=== PATIENT | male | born 1960 | race Caucasian/White ===

== ENCOUNTER 2024-06-27 13:15 | Outpatient (CLI) | payer OTHER | END 2024-06-27 13:16 | disposition home or self-care (01) | LOC: BICRAD 13:15 | PROVIDERS: ATTEND Podiatrist | DX: L89.90 Pressure ulcer of unspecified site, unspecified stage (principal) ==

== ENCOUNTER 2024-08-08 20:16 | Inpatient (IN) | payer BC, SELFPAY ==
[2024-08-08] MEDS ORDERED: Ipratropium/Albuterol 3 ML NEB NEB PRN (22:05)
[2024-08-08] MEDS ORDERED: Morphine 2 MG/ML VIAL SLOW IVP PRN (22:05)
[2024-08-08] MEDS ORDERED: Ondansetron PF 4 MG/2 ML Vial IVP PRN (22:05)
[2024-08-08] MEDS ORDERED: traMADol HCl 50 MG TAB PO PRN (22:06)
[2024-08-08] MEDS ORDERED: Morphine 4 MG/ML VIAL ONE (22:21)
[2024-08-08 22:48] LABS: #Basophils Less than 0.03 10x3/uL (0.0-0.2); %Basophils 0.3 % (0.0-1.0); %Eosinophils 2.6 % (0.0-10.0); %Lymphocytes 17.2 % (21.0-51.0); %Monocytes 11.1 % (0.0-10.0); %Neutrophils 68.1 % (42.0-75.0); Hematocrit 41.4 % (42.0-52.0); Hemoglobin 14.3 g/dL (14.0-18.0); Mean Corpuscular HGB CONC 34.5 g/dL (32.0-36.0); Mean Corpuscular Hemoglobin 29.8 pg (27.0-31.0); Mean Corpuscular Volume 86.3 fL (78.0-98.0); Mean Platelet Volume 9.5 fL (7.4-10.4); Platelet Count 202 10x3/uL (130-400); RBC Distribution Width 12.3 % (11.5-14.5)
[2024-08-08 22:57] LABS: PTT 30.1 sec (22.9-36.1); Prothrombin Time 13.2 sec (12.0-14.7)
[2024-08-08 23:17] LABS: Anion Gap 15 mmol/L (10-20); BUN (Urea Nitrogen) 9 mg/dL (8.4-25.7); Calc. Creatinine Clearance 0 mL/min (70-130); Calcium 9.5 mg/dL (7.8-10.44); Carbon Dioxide 25 mmol/L (23-31); Chloride 99 mmol/L (98-107); Estimated GFR 106; Glucose 84 mg/dL (80-115); Potassium 3.6 mmol/L (3.5-5.1); Sodium 135 mmol/L (136-145)
[2024-08-08 23:40] VITALS: BMI 25.1
[2024-08-09] MEDS: Sodium Chloride 0.9% 1,000 ML IV SCH (00:01)
[2024-08-09] MEDS: Acetaminophen 325 MG TAB PO SCH ×2 (00:02→18:16)
[2024-08-09] MEDS: traMADol HCl 50 MG TAB PO SCH (00:03)
[2024-08-09] MEDS ORDERED: Labetalol HCl 100 MG/20 ML VIAL SLOW IVP PRN (01:12)
[2024-08-09] MEDS: hydrALAZINE 20 MG/ML VIAL SLOW IVP PRN (01:18)
[2024-08-09 05:44] LABS: #Basophils Less than 0.03 10x3/uL (0.0-0.2); %Basophils 0.3 % (0.0-1.0); %Eosinophils 2.8 % (0.0-10.0); %Lymphocytes 25.7 % (21.0-51.0); %Monocytes 10.9 % (0.0-10.0); Hematocrit 40.9 % (42.0-52.0); Mean Corpuscular HGB CONC 34.2 g/dL (32.0-36.0); Mean Corpuscular Hemoglobin 30.1 pg (27.0-31.0); Mean Platelet Volume 9.9 fL (7.4-10.4); Platelet Count 197 10x3/uL (130-400); RBC Distribution Width 12.4 % (11.5-14.5); Red Blood Cell (RBC) Count 4.65 mill/uL (4.70-6.10)
[2024-08-09 05:51] LABS: Anion Gap 13 mmol/L (10-20); BUN (Urea Nitrogen) 7 mg/dL (8.4-25.7); Calc. Creatinine Clearance 170 mL/min (70-130); Calcium 9.1 mg/dL (7.8-10.44); Carbon Dioxide 23 mmol/L (23-31); Chloride 105 mmol/L (98-107); Estimated GFR 110; Glucose 83 mg/dL (80-115); Potassium 3.2 mmol/L (3.5-5.1); Sodium 138 mmol/L (136-145)
[2024-08-09] MEDS: Famotidine/PF 20 mg/2ml Vial SLOW IVP SCH (10:40)
[2024-08-09] MEDS: Senokot S 8.6-50 MG TAB PO SCH ×2 (10:40→20:33)
[2024-08-09] MEDS: Polyethylene Glycol 3350 17 GM Packet PO SCH (10:40)
[2024-08-09] MEDS ORDERED: Vancomycin 1 GM in Premix 1 BAG IVPB SCH (10:45)
[2024-08-09 12:02] VITALS: BMI 25.1
[2024-08-09] MEDS ORDERED: CEFAZOLIN 2 GM VIAL ONE (13:04)
[2024-08-09] MEDS ORDERED: fentaNYL 50 mcg/mL 1 mL Vial ONE ×5 (13:12→17:22)
[2024-08-09] MEDS ORDERED: Ropivacaine 0.5% HCl/PF (150 MG/30 ML VIAL) ONE (13:13)
[2024-08-09] MEDS ORDERED: Ropivacaine 0.2% HCl/PF 20 ML ONE (13:13)
[2024-08-09] MEDS ORDERED: Midazolam HCl 2 mg/2 ml Vial ONE (13:13)
[2024-08-09] MEDS ORDERED: Propofol 1,000 MG/100 ML VIAL IV ONE (13:36)
[2024-08-09] MEDS ORDERED: PROPOFOL 20 ML ONE (13:40)
[2024-08-09] MEDS ORDERED: fentaNYL PF 100 MCG/2 ML SYRINGE ONE (13:49)
[2024-08-09] MEDS ORDERED: Glycopyrrolate 0.2 MG/ML 5 ML SYRINGE ONE (14:04)
[2024-08-09] MEDS ORDERED: PHENYLEPHRINE-NS 100 MCG/ML 10 ML SYRINGE ONE (14:04)
[2024-08-09] MEDS ORDERED: Phenylephrine 10 MG/ML VIAL ONE (14:11)
[2024-08-09] MEDS ORDERED: Tranexamic Acid 1,000 MG/10 ML VIAL ONE (14:17)
[2024-08-09] MEDS ORDERED: Vancomycin 1 GM VIAL ONE ×2 (14:22→14:23)
[2024-08-09] MEDS ORDERED: Promethazine HCl 25 MG/ML VIAL IM PRN (16:13)
[2024-08-09] MEDS ORDERED: diphenhydrAMINE 25 MG CAP PO PRN (16:13)
[2024-08-09] MEDS ORDERED: Ondansetron PF 4 MG/2 ML Vial IVP PRN (16:13)
[2024-08-09] MEDS: traMADol HCl 50 MG TAB PO PRN (18:01)
[2024-08-09] MEDS: Morphine 4 MG/ML VIAL SLOW IVP PRN (18:41)
[2024-08-09] MEDS: Aspirin 81 mg Enteric Coated Tablet PO SCH (20:32)
[2024-08-09] MEDS: Ferrous Gluconate 324 MG TAB PO SCH (20:32)
[2024-08-09] MEDS: Zolpidem Tartrate 5 MG TAB PO PRN (20:32)
[2024-08-09] MEDS: CEFAZOLIN 2 GM in Sodium Chloride 0.9% 100 ML IVPB SCH ×2 (20:33→20:34)
[2024-08-10 05:24] LABS: Hematocrit 36.5 % (42.0-52.0); Hemoglobin 12.7 g/dL (14.0-18.0); Mean Corpuscular HGB CONC 34.8 g/dL (32.0-36.0); Mean Corpuscular Hemoglobin 29.7 pg (27.0-31.0); Mean Corpuscular Volume 85.3 fL (78.0-98.0); Mean Platelet Volume 9.5 fL (7.4-10.4); Platelet Count 208 10x3/uL (130-400); RBC Distribution Width 12.3 % (11.5-14.5); Red Blood Cell (RBC) Count 4.28 mill/uL (4.70-6.10)
[2024-08-10 05:48] LABS: ALT (SGPT) 29 U/L (8-55); AST (SGOT) 33 U/L (5-34); Albumin 3.4 g/dL (3.4-4.8); Alkaline Phosphatase 52 U/L (40-110); Anion Gap 16 mmol/L (10-20); BUN (Urea Nitrogen) 7 mg/dL (8.4-25.7); Bilirubin, Total 0.6 mg/dL (0.2-1.2); Calc. Creatinine Clearance 157 mL/min (70-130); Calcium 8.9 mg/dL (7.8-10.44); Carbon Dioxide 20 mmol/L (23-31); Chloride 99 mmol/L (98-107); Estimated GFR 108; Globulin 3.2 g/dL (2.4-3.5); Glucose 129 mg/dL (80-115); Protein, Total 6.6 g/dL (5.8-8.1); Sodium 131 mmol/L (136-145)
[2024-08-10] MEDS: Atorvastatin Calcium 20 MG TAB PO SCH (07:57)
[2024-08-10] MEDS: Sertraline 25 MG TAB PO SCH (07:57)
[2024-08-10] MEDS: Lisinopril 20 MG TAB PO SCH (07:57)
[2024-08-10] MEDS: Multivitamin W/ Minerals 1 TAB PO SCH (07:57)
[2024-08-10] MEDS: Amlodipine 5 MG TAB PO SCH (07:58)
[2024-08-10] MEDS: Ketorolac Tromethamine 30 MG (1 mL) VIAL IVP SCH (07:58)
[2024-08-11 08:09] LABS: Hematocrit 31.2 % (42.0-52.0); Hematocrit 31.8 % (42.0-52.0); Hemoglobin 10.7 g/dL (14.0-18.0); Hemoglobin 10.9 g/dL (14.0-18.0); Mean Corpuscular HGB CONC 34.3 g/dL (32.0-36.0); Mean Corpuscular Hemoglobin 29.6 pg (27.0-31.0); Mean Corpuscular Hemoglobin 29.7 pg (27.0-31.0); Mean Corpuscular Volume 86.4 fL (78.0-98.0); Mean Corpuscular Volume 86.7 fL (78.0-98.0); Mean Platelet Volume 10.3 fL (7.4-10.4); Platelet Count 187 10x3/uL (130-400); Platelet Count 192 10x3/uL (130-400); RBC Distribution Width 12.3 % (11.5-14.5); RBC Distribution Width 12.5 % (11.5-14.5); Red Blood Cell (RBC) Count 3.68 mill/uL (4.70-6.10)
[2024-08-11 08:28] LABS: Anion Gap 15 mmol/L (10-20); BUN (Urea Nitrogen) 11 mg/dL (8.4-25.7); Calc. Creatinine Clearance 143 mL/min (70-130); Calcium 8.7 mg/dL (7.8-10.44); Carbon Dioxide 20 mmol/L (23-31); Chloride 99 mmol/L (98-107); Estimated GFR 105; Glucose 82 mg/dL (80-115); Potassium 3.4 mmol/L (3.5-5.1); Sodium 131 mmol/L (136-145)
[2024-08-12 05:02] LABS: Hematocrit 32.5 % (42.0-52.0); Hemoglobin 11.1 g/dL (14.0-18.0); Mean Corpuscular HGB CONC 34.2 g/dL (32.0-36.0); Mean Corpuscular Volume 87.8 fL (78.0-98.0); Platelet Count 231 10x3/uL (130-400); RBC Distribution Width 12.3 % (11.5-14.5)
[2024-08-12 12:11] VITALS: BP 142/71; TEMP 98.2
== END 2024-08-12 17:23 | disposition home or self-care (01) | DRG 522 ==
LOC: ERS 20:16 → SURG B 22:07
PROVIDERS: ADMIT Student in an Organized Health Care Education/Training Program; ATTEND Student in an Organized Health Care Education/Training Program
PROC: 0SR90JA Replacement of Right Hip Joint with Synthetic Substitute, Uncemented, Open Approach (ICD-10-PCS; principal; 2024-08-09)
DX: S72.001A Fracture of unspecified part of neck of right femur, initial encounter for closed fracture (principal); E78.00 Pure hypercholesterolemia, unspecified; I10 Essential (primary) hypertension; W18.30XA Fall on same level, unspecified, initial encounter; Z79.899 Other long term (current) drug therapy; Z79.02 Long term (current) use of antithrombotics/antiplatelets
CPT/HCPCS: 36415; 71045; 72170; 80048; 80053; 83605; 85025; 85027; 85610; 85730; 86850; 86900; 86901; 96374; C1713; C1776; C1889; J0360; J1885; J2250; J2272; J2371; J2704; J2795; J3010; J3370; J3490; J7030